=== PATIENT | male | born 1955 | race Caucasian/White ===

== ENCOUNTER 2022-04-02 13:47 | Outpatient (REF) | payer OTHER, SELFPAY | END 2022-04-02 13:48 | disposition home or self-care (01) | LOC: HO.SH 13:47 | PROVIDERS: PCP Internal Medicine; Visit Provider Internal Medicine | DX: Z01.118 Encounter for examination of ears and hearing with other abnormal findings (principal); H90.3 Sensorineural hearing loss, bilateral | CPT/HCPCS: 92557; 92567 ==